=== PATIENT | female | born 1955 | race Two or more races ===

== ENCOUNTER → 2020-04-21 | Outpatient (CLI) | payer OTHER | END | disposition home or self-care (01) | LOC: OFIC 805 09:00 | PROVIDERS: ATTEND Otolaryngology | DX: M54.2 Cervicalgia (principal); R07.0 Pain in throat; R49.0 Dysphonia; H92.02 Otalgia, left ear ==

== ENCOUNTER 2020-05-26 06:54 | Outpatient (CLI) | payer OTHER | END 2020-05-26 07:20 | disposition home or self-care (01) | LOC: OFIC 805 06:54 | PROVIDERS: ATTEND Otolaryngology | DX: H92.02 Otalgia, left ear (principal); K14.6 Glossodynia; J35.1 Hypertrophy of tonsils; M62.838 Other muscle spasm ==